=== PATIENT | female | born 1995 | race Caucasian/White ===

== ENCOUNTER 2017-03-16 17:50 | Outpatient (CLI) | payer MEDICAID ==
[~2017-03-16] VITALS: Ht 167.6 cm; Wt 89.9 kg
[~2017-03-16 17:50] MED LIST: PREN1TAB79 PO
[2017-03-16] MEDS ORDERED: LACTATED RINGER'S 1,000 ML IV SCH (18:25)
[2017-03-16 18:42] LABS: ADD UMIC YES; UR ASCORBIC ACID NEGATIVE (NEGATIVE); UR BILIRUBIN (Dip) NEGATIVE (NEGATIVE); UR BLOOD (Dip) NEGATIVE (NEGATIVE); UR CLARITY CLEAR (CLEAR); UR COLOR YELLOW (YELLOW); UR GLUCOSE (Dip) NEGATIVE (NEGATIVE); UR KETONES (Dip) NEGATIVE (NEGATIVE); UR LEUKOCYTE ESTERASE (Dip) 3+ Leu/ul (NEGATIVE); UR NITRITE (Dip) NEGATIVE (NEGATIVE); UR RBC 1 /HPF (0-5); UR SPECIFIC GRAVITY (Dip) 1.006 (1.003-1.030); UR TOTAL PROTEIN (Dip) NEGATIVE (NEGATIVE); UR UROBILINOGEN (Dip) NEGATIVE (NEGATIVE)
[2017-03-16 18:46] VITALS: Ht 167.6 cm; Wt 89.9 kg
[2017-03-16 19:17] LABS: BASOPHILS % 0.3 % (0.0-2.0); EOSINOPHILS # 0.1 10^3/ul (0.0-0.5); EOSINOPHILS % 0.8 % (0.0-7.0); HEMATOCRIT 29.1 % (37.0-47.0); HEMOGLOBIN 9.1 g/dl (12.0-16.0); LYMPHOCYTES # 1.9 10^3/ul (0.8-2.9); LYMPHOCYTES % 20.6 % (15.0-51.0); MEAN CORPUSCULAR HEMOGLOBIN 26.5 pg (29.0-33.0); MEAN CORPUSCULAR HGB CONC 31.3 g/dl (32.0-37.0); MEAN CORPUSCULAR VOLUME 84.6 fl (82.0-101.0); MEAN PLATELET VOLUME 11.1 fl (7.4-10.4); MONOCYTE # 0.8 10^3/ul (0.3-0.9); MONOCYTES % 8.5 % (0.0-11.0); NEUTROPHIL # 6.4 10^3/ul (1.6-7.5); NEUTROPHILS % 69.3 % (39.0-77.0); PLATELET COUNT 249 10^3/UL (140-415); RED BLOOD COUNT 3.44 10^6/ul (4.20-5.40); RED CELL DISTRIBUTION WIDTH 14.3 % (11.5-14.5); WHITE BLOOD COUNT 9.3 10^3/ul (4.8-10.8)
[2017-03-16 19:38] LABS: ALBUMIN 3.5 g/dl (3.3-4.9); ALBUMIN/GLOBULIN RATIO 1.12; BILIRUBIN,INDIRECT 0.7 mg/dl (0-1.1); BILIRUBIN,TOTAL 0.7 mg/dl (0.2-1.3); CALCIUM 8.6 mg/dl (8.4-10.2); CREATININE 0.51 mg/dl (0.44-1.00); POTASSIUM 3.4 mmol/L (3.5-5.1); TOTAL PROTEIN 6.6 g/dl (6.1-8.1)
--- NOTE | 2017-03-16 20:15 | RADRPT ---
PROCEDURE: OB ultrasound for biophysical profile CLINICAL INDICATION: labor. TECHNIQUE: Multiple sonographic images of the pelvis were obtained. Transabdominal view of the gr avid uterus are available for review. The images were reviewed on a PACS workstation. COMPARISON: None FINDINGS: Estimated due date June 03, 2017 Estimated gestational age by ED 28 weeks 5 days breathing movement = 2/2 tone = 2/2 motion = 2/2 Amniotic fluid = 2/2 CHAITANYA = 14.5 cm Single live intrauterine in cephalic presentation with cardiac activity (173 bpm). Anterior placenta, grade 1 with the scattered punctate calcifications.. Placenta measures up to 2.7 cm in thickness. IMPRESSION: 1. Single viable intrauterine gestation in cephalic presentation. 2. Biophysical profile = 8/8. 3. CHAITANYA = 14.5 cm. 4. Anterior grade 1 placenta without evidence of previa. RPTAT: HCTS Physician Sridhar Date Time Electronically viewed and signed by Physician Sridhar on 03/16/2017 20:15 CS/
--- NOTE | 2017-03-16 20:20 | RADRPT ---
PROCEDURE: Limited OB ultrasound CLINICAL INDICATION: 21-year-old female. labor. TECHNIQUE: Sonographic evaluation to assess the cervical length was performed. Transabdominal and transvaginal imaging of the uterus was performed. COMPARISON: None. FINDINGS: ROSHNI: June 03, 2017 EGA by ROSHNI: 28 weeks 5 days A single live intrauterine in cephalic presentation is identified. The heart rate me asures 150 bpm. The cervix is closed, measuring 3.7 cm in length. Negative for internal funneling.. There is an anterior placenta and, grade 1. IMPRESSION: Closed cervix measuring 3.7 cm. RPTAT: HCTS Physician Sridhar Date Time Electronically viewed and signed by Physician Sridhar on 03/16/2017 20:20 CS/
[2017-03-16] MEDS ORDERED: CEFAZOLIN 2 GM/50 ML (PMX) 50 ML IVPB ONE (21:30)
--- NOTE | 2017-03-16 21:31 | QN ---
Documentation Comment iup 31 weeks co of back abd and leg pain no nvfc good FM vss exam wnl rrr ctab no cva tenderess us wnl ua uti a/p iup 31 weeks false labor uti-macrobid nc home MOUNA SCOTT MD Mar 16, 2017 21:31
[2017-03-16] MEDS ORDERED: NIFEdipine 10 MG CAP PO ONE (23:00)
--- NOTE | 2017-03-17 01:38 | TRIAGE ---
OB Triage Datetime Report Generated by CPN: 03/17/2017 01:38 Datetime: 03/16/2017 23:52 Stage of : OB Triage Labor Evaluation Frequency: none Monitor Mode: External Pattern: Normal: <= 5 Contractions in 10 Minutes Resting Tone Pope: Relaxed Heart Rate FHR Baseline Rate: 140 Monitor Mode: External US Variability: Moderate 6-25 bpm Accelerations: 15X15 Decelerations: None Category: Category I Datetime: 03/16/2017 23:41 Pain Assessment Pain Scale: 2 Pain Presence: Constant Pain Location: Abdomen Datetime: 03/16/2017 23:00 Labor Evaluation Frequency: 3-7 Monitor Mode: External Duration (sec)2399: 50-70 Quality: Mild Pattern: Normal: <= 5 Contractions in 10 Minutes Resting Tone Pope: Relaxed Heart Rate FHR Baseline Rate: 135 Monitor Mode: External US Variability: Moderate 6-25 bpm Accelerations: 15X15 Decelerations: None Category: Category I Datetime: 03/16/2017 22:40 Monitor Mode: External US Datetime: 03/16/2017 22:03 Pain Assessment Pain Scale: 5 Pain Presence: Constant Datetime: 03/16/2017 22:00 Labor Evaluation Frequency: 2-8 Monitor Mode: External Duration (sec)2399: 50-60 Quality: Mild Pattern: Normal: <= 5 Contractions in 10 Minutes Resting Tone Pope: Relaxed Heart Rate FHR Baseline Rate: 135 Monitor Mode: External US Variability: Moderate 6-25 bpm Accelerations: 15X15 Decelerations: None Category: Category I Datetime: 03/16/2017 21:00 Labor Evaluation Frequency: x1 Monitor Mode: External Duration (sec)2399: 50 Quality: Mild Pattern: Normal: <= 5 Contractions in 10 Minutes Resting Tone Pope: Relaxed Heart Rate FHR Baseline Rate: 135 Monitor Mode: External US Variability: Moderate 6-25 bpm Accelerations: 10X10 Decelerations: Early Datetime: 03/16/2017 20:00 Labor Evaluation Frequency: none Monitor Mode: External Pattern: Normal: <= 5 Contractions in 10 Minutes Resting Tone Pope: Relaxed Heart Rate FHR Baseline Rate: 145 Monitor Mode: External US Variability: Moderate 6-25 bpm Accelerations: 10X10 Datetime: 03/16/2017 19:02 Stage of : OB Triage Assessment Type: Triage Maternal Assessment Level of Consciousness: Fully Conscious DTR's/Clonus: DTRs 2+; No Clonus Headache: Denies Blurred Vision: No Respiratory Effort: Unlabored; Regular Rhythm; Equal Expansion Breath Sounds, Left: Clear and Equal Breath Sounds, Right: Clear and Equal Nausea/Vomiting: Denies RUQ Epigastric Pain: Denies Lower Extremities Edema: None Degree: None Upper Extremities Edema: None Degree: None Facial Edema: None Temperature Route: Axillary Fall Risk Assessment History of Falling: (0) No Secondary Diagnosis: (0) No Ambulatory Aid: (0) Bedrest/Nurse Assist IV Therapy: (0) No Gait: (0) Normal/Bedrest/Immobile Mental Status: (0) Oriented to Own Ability Fall Score: 0 Fall Risk Score Definition: No Risk: No action required Pain Assessment Pain Scale: 8 Pain Presence: Constant Pain Location: Abdomen Datetime: 03/16/2017 18:37 Labor Evaluation Frequency: 0 Monitor Mode: External Duration (sec)2399: 0 Resting Tone Pope: Relaxed Contraction Comments: NO UC'S NOTED PT DENIES UC'S Heart Rate FHR Baseline Rate: 135 Monitor Mode: External US Variability: Moderate 6-25 bpm Accelerations: 15X15 Decelerations: None Category: Category I Comments: NST REACTIVE FOR GESTATIONAL AGE Pain Assessment Pain Scale: 9 Pain Presence: Constant Pain Type: Cramping Pain Location: Abdomen; Back Pain Goal: 1 Pain Relief Measures: Comfort Measures Datetime: 03/16/2017 18:03 Time of Arrival: 03/16/2017 17:40 EGA: 31.1 Arrived By: Ambulatory Arrived From: Home Chief Complaint: CONSTANT ABDOMINAL PAIN/ BACK PAIN FOR 2 WEEKS Movement: Present Contractions: Denies/Absent Rupture of Membranes: Denies Vaginal Bleeding: None Vaginal Discharge: Denies Recent Sexual Intercouse: Denies Abdominal Trauma: Not Applicable Patient Complaints: Cramping; Back Pain Time Provider Notified: 03/16/2017 18:21 Provider Notified: SEAN Initial Plan: NST AND CALL
== END 2017-03-17 00:03 | disposition home or self-care (01) ==
LOC: OBT 17:50 → L-D 17:51 → OBT 03-17 00:03
PROVIDERS: ATTEND Obstetrics & Gynecology
DX: O47.00 False labor before 37 completed weeks of gestation, unspecified trimester (principal); O23.43 Unspecified infection of urinary tract in pregnancy, third trimester; Z3A.31 31 weeks gestation of pregnancy
CPT/HCPCS: 36415; 76817; 76818; 80053; 81001; 85025; 96360; 96361; 96367; J0690; J7120; Z7500; Z7610; G0463

== ENCOUNTER 2017-06-03 00:39 | Outpatient (CLI) | payer MEDICAID, OTHER ==
[~2017-06-03] VITALS: Ht 167.6 cm; Wt 85.9 kg
[2017-06-03 01:11] VITALS: Ht 167.6 cm; Wt 85.9 kg
[2017-06-03 01:12] VITALS: BP 117/60; PULSE 108; RESP 18
--- NOTE | 2017-06-03 01:48 | PN ---
Triage Information Date/Time Reason for visit: Uterine contractions Weeks of Gestation 40+0 /Para 2/1 Diabetes: none Hypertention: none Additional information Contractions started at 6pm yesterday. Was concerned about decreased FM at home so did kick counts this evening and got 10 kicks/1hr. Denies LOF. Has noticed a small amt of bleeding with contractions. Objective Vital Signs Date Time Temp Pulse Resp B/P Pulse Ox O2 Delivery O2 Flow Rate FiO2 06/03/17 01:12 98.3 108 18 117/60 Room Air Heart Rate: 140's Contractions: >10 Minutes Apart (4 UCs/50 min) Exam SVE 2/70/-3, no blood on RN glove after exam, unchanged after 2hrs Results/Medications Imaging Results PROCEDURE: Biophysical profile. CLINICAL INDICATION: Pelvic pain. TECHNIQUE: Multiple sonographic images of the pelvis were obtained with transabdominal technique. COMPARISON: 03/16/2017. FINDINGS: There is a single living intrauterine gestation with the fetus in a vertex position. The placenta is anterior in location, grade II. heart tones of 159 beats per minute are identified. There is normal amniotic fluid volume with an CHAITANYA of 10.0 cm. breathing movements = 2 Gross body movements = 2 tone = 2 Qualitative AFV = 2 IMPRESSION: Biophysical profile 8 out of 8. Disposition: Discharge Assessment/Plan Early labor Reactive NST, nl BPP Pt appropriate for d/c home Pt to call provider for follow-up plan Strict labor, ROM and FKC precautions reviewed Questions answered to pt and her partner's satisfaction HORACIO SARAVIA MD Jun 03, 2017 01:48
--- NOTE | 2017-06-03 03:07 | RADRPT ---
PROCEDURE: Biophysical profile. CLINICAL INDICATION: Pelvic pain. TECHNIQUE: Multiple sonographic images of the pelvis were obtained with transabdominal technique. COMPARISON: 03/16/2017. FINDINGS: There is a single living intrauterine gestation with the fetus in a vertex position. The placenta i s anterior in location, grade II. heart tones of 159 beats per minute are identified. There i s normal amniotic fluid volume with an CHAITANYA of 10.0 cm. breathing movements = 2 Gross body movements = 2 tone = 2 Qualitative AFV = 2 IMPRESSION: Biophysical profile 8 out of 8. .Josias Davis MD, Date Time Electronically viewed and signed by .Josias Davis MD, on 06/03/2017 03:07 .T/
--- NOTE | 2017-06-03 04:06 | TRIAGE ---
OB Triage Datetime Report Generated by CPN: 06/03/2017 04:06 Datetime: 06/03/2017 01:49 Stage of : OB Triage Datetime: 06/03/2017 01:29 Stage of : OB Triage Contraction Comments: MONIORS OFF, PT UP FOR AMBULATORY. Datetime: 06/03/2017 01:28 Stage of : OB Triage Labor Evaluation Frequency: x1 Monitor Mode: External Duration (sec)2399: 110 Quality: Mild Heart Rate FHR Baseline Rate: 140 Monitor Mode: External US Variability: Moderate 6-25 bpm Accelerations: 15X15 Decelerations: None Category: Category I Datetime: 06/03/2017 01:05 Stage of : OB Triage Maternal Assessment Temperature Route: Oral Labor Evaluation Frequency: X2 Monitor Mode: External Duration (sec)2399: 80-110 Quality: Moderate Heart Rate FHR Baseline Rate: 145 Monitor Mode: External US Variability: Moderate 6-25 bpm Accelerations: 15X15 Decelerations: None Category: Category I Pain Assessment Pain Scale: 9 Pain Presence: Intermittent Pain Type: Contraction Pain Location: Abdomen Pain Goal: 3 Pain Assessment Comments: PT APPEAR COMFORTABLE AND NO SIGNS OF DISTRESS, PT WATCHING PHONE WHEN LYING ON THE GURNEY. Datetime: 06/03/2017 00:48 Stage of : Labor Vaginal Exam Dilatation (cms): 2.0 Effacement (%): 70 Station: -3 Exam By: DARLEEN MENDEZ Membrane Status: Intact Datetime: 03/17/2017 00:58 Time of Arrival: 06/03/2017 00:30 EGA: 40.0 Arrived By: Wheelchair Arrived From: Home Chief Complaint: PT C/O ABDOMEN CONTRACTION PAIN Movement: Present Contractions: Irregular Time Contractions Began: 06/02/2017 18:00 Rupture of Membranes: Denies Vaginal Discharge: Denies Recent Sexual Intercouse: Denies Abdominal Trauma: Not Applicable Patient Complaints: Contractions Time Provider Notified: 06/03/2017 01:28 Provider Notified: DR SARAVIA Initial Plan: INITIAL ASSESSMENT, SVE, TOCO AND EFM APPLY (Annotations: Data stored by CPN on beh intermediate of user) Datetime: 03/16/2017 19:02 Fall Risk Assessment Fall Score: 0 Fall Risk Score Definition: No Risk: No action required Datetime: 03/16/2017 18:03 EGA: 28.5
== END 2017-06-03 03:30 | disposition home or self-care (01) ==
LOC: OBT 00:39 → L-D 00:39 → OBT 03:30
PROVIDERS: ATTEND Obstetrics & Gynecology
DX: O62.9 Abnormality of forces of labor, unspecified (principal); Z3A.40 40 weeks gestation of pregnancy
CPT/HCPCS: 76818; Z7500; G0463

== ENCOUNTER 2017-06-03 05:43 | Inpatient (IN) | payer OTHER ==
[~2017-06-03] VITALS: Ht 167.6 cm; Wt 91.6 kg
[2017-06-04 18:53] VITALS: Ht 167.6 cm; Wt 91.6 kg
[2017-06-04 18:54] VITALS: BP 105/60; PULSE 91; RESP 16
[2017-06-04] MEDS ORDERED: CARBOPROST 250 MCG INJ IM PRN (20:30)
[2017-06-04] MEDS ORDERED: AMPICILLIN 2 GM/NS (PMX) 100 ML IV ONE (20:30)
[2017-06-04] MEDS ORDERED: MINERAL OIL LIGHT 10 ML VIAL TOP ONE (20:30)
[2017-06-04] MEDS ORDERED: METHYLERGONOVINE 0.2 MG INJ IM PRN (20:30)
[2017-06-04] MEDS ORDERED: LIDOCAINE 1% (MPF) 30 ML INJ INJ PRN (20:30)
[2017-06-04] MEDS ORDERED: OXYTOCIN 30 UNITS/LR 500 ML IV PRN (20:30)
[2017-06-04] MEDS ORDERED: BUTORPHANOL 2 MG INJ IV PRN (20:30)
[2017-06-04] MEDS ORDERED: IBUPROFEN 600 MG TAB PO PRN (20:30)
[2017-06-04] MEDS ORDERED: MISOPROSTOL 200 MCG TAB PR PRN (20:30)
[2017-06-04] MEDS ORDERED: OXYTOCIN 30 UNITS/LR 500 ML IV SCH (20:30)
[2017-06-04] MEDS: LACTATED RINGER'S 1,000 ML IV SCH (20:44)
--- NOTE | 2017-06-04 20:52 | RADRPT ---
PROCEDURE: US OB. CLINICAL INDICATION: Post dates. The patient in labor. TECHNIQUE: Multiple sonographic images of the uterus were obtained. The images were revi ewed on a PACS workstation. COMPARISON: No prior studies are available for comparison. FINDINGS: There is a single live intrauterine gestation. heart rate is 144 beats per minute. Measurements were made in order to determine age. The results are as follows: BPD = 9.28 cm. HC = 33.01 cm. AC = 36.96 cm. FL = 7.48 cm. Estimated weight is 3114 +/- 572 grams. LMP growth percentile is 64 %. Menstrual age by ultrasound dates is 38 weeks 4 days. The estimated date of delivery is 06/14/2017. Position is cephalic and placenta is anterior grade II. There is no evidence for an abruption or stacy centa previa. IMPRESSION: 1. Single live intrauterine gestation of 38 weeks 4 days menstrual age by ultrasound dates. 2. The estimated date of delivery is 06/14/2017. RPTAT: QQ .Giuseppe Agrawal MD, Date Time Electronically viewed and signed by .Giuseppe Agrawal MD, on 06/04/2017 20:52 .R/
[2017-06-04] MEDS ORDERED: LACTATED RINGER'S 1,000 ML IV PRN (21:00)
[2017-06-05] MEDS ORDERED: FENTAnyl 2MCG/ML-ROPIV 0.2% 100 ML ONE (00:17)
[2017-06-05] MEDS ORDERED: NALOXONE (0.4 MG/ML) INJ IV PRN (01:30)
[2017-06-05] MEDS: LACTATED RINGER'S 1,000 ML IV SCH ×3 (01:40→19:50)
[2017-06-05] MEDS: AMPICILLIN 1 GM/NS (PMX) 50 ML IV SCH ×6 (01:40→20:30)
[2017-06-05] MEDS ORDERED: OXYTOCIN 30 UNITS in LACTATED RINGER'S 497 ML IV SCH (02:00)
[2017-06-05] MEDS ORDERED: OXYTOCIN 30 UNITS/LR 500 ML IV SCH (02:30)
[2017-06-05] MEDS: FENTAnyl 2MCG/ML-ROPIV 0.2% 100 ML BAG EPI SCH ×2 (09:19→16:01)
--- NOTE | 2017-06-05 12:17 | RADRPT ---
PROCEDURE: US Abdomen. CLINICAL INDICATION: abdominal pain TECHNIQUE: Multiple real-time images were acquired of the patient's right upper quadrant abdomen a nd retroperitoneum utilizing a high resolution transducer. COMPARISON: None FINDINGS: The liver demonstrates normal echogenicity. The liver is normal in size and no focal solid lesions are seen. The liver measures 15.0 cm in length. The portal vein is patent with normal direction of f low. No intrahepatic biliary dilatation is seen. No gallstones are identified within the gallbladder. There is no pericholecystic fluid or gallbladd er wall thickening. The common bile duct measures 3.6 mm in maximal dimension. The pancreas was not seen due to overlying bowel gas. No free fluid is identified. The right kidney is normal in size, and demonstrate normal echogenicity and cortical thickness. The right kidney measures 11.6 cm in long dimension. There is mild right-sided hydronephrosis. There a re no kidney stones. RPTAT: AA IMPRESSION: Mild right-sided hydronephrosis. Pancreas not seen due to overlying bowel gas. .Baljit Dodd MD, Date Time Electronically viewed and signed by .Baljit Dodd MD, MD on 06/05/2017 12:17 .S/
[2017-06-05] MEDS ORDERED: NA PHOSPHATE/BIPHOS 133 ML ENEMA PR ONE (13:30)
[2017-06-05] MEDS: OXYTOCIN 30 UNITS/LR 500 ML IV SCH ×2 (20:30→20:54)
--- NOTE | 2017-06-05 20:54 | LDN ---
Date/Time of Note Date/Time of Note DATE: 06/05/17 TIME: 20:52 Delivery Summary Weeks of Gestation 40 Placenta Delivered: Spontaneously Meconium: none Episiotomy: No Laceration repair: Left labia minora laceration repaired with 3-0 chromic Anesthesia type: Epidural Estimated blood loss: 200 Sponge & Needle done & correct: Yes All needle counts correct: Yes Any foreign bodies felt in the: No Problems: Delivery Information Sex Infant Sex: female Apgars 1 Minute: 8 5 Minute: 9 Suctioning Nose & mouth suctioned at chasity: No Delee suction performed: No Umbilical Cord Umbilical cord with: 3 Vessels Cord presentations: no nuchal cord Cord Blood was obtained: Yes AKI KIRBY MD Jun 05, 2017 20:54
[2017-06-05] MEDS ORDERED: OXYCODONE/ASPIRIN (4.88/325) TAB PO PRN ×2 (21:00)
[2017-06-05] MEDS ORDERED: METHYLERGONOVINE 0.2 MG INJ IM PRN (21:00)
[2017-06-05] MEDS ORDERED: MISOPROSTOL 200 MCG TAB PR PRN (21:00)
[2017-06-05] MEDS ORDERED: SENNA/DOCUSATE NA (8.6MG/50MG) TAB PO PRN (21:00)
[2017-06-05] MEDS ORDERED: BENZOCAINE 20% 56 ML SPRAY TOP PRN (21:00)
[2017-06-05] MEDS ORDERED: WITCH HAZEL/GLYCERIN PAD PR PRN (21:00)
[2017-06-05] MEDS ORDERED: DIPHENHYDRAMINE 25 MG CAP PO PRN (21:00)
[2017-06-05] MEDS ORDERED: DIBUCAINE 1% 30 GM OINT PR PRN (21:00)
[2017-06-05] MEDS ORDERED: ONDANSETRON 4 MG TAB PO PRN (21:00)
[2017-06-05] MEDS ORDERED: ONDANSETRON 4 MG INJ IV PRN (21:00)
[2017-06-05] MEDS ORDERED: LANOLIN 7 GM TUBE TOP PRN (21:00)
[2017-06-05] MEDS ORDERED: OXYTOCIN 30 UNITS/LR 500 ML IV PRN (21:00)
[2017-06-05] MEDS: SENNA/DOCUSATE NA (8.6MG/50MG) TAB PO SCH (21:00)
[2017-06-05] MEDS ORDERED: CARBOPROST 250 MCG INJ IM PRN (21:00)
[2017-06-05 22:30] VITALS: BP 118/63; PULSE 71; RESP 20
[2017-06-05 23:00] VITALS: BP 110/65; PULSE 66; RESP 20
[2017-06-06 00:01] VITALS: BP 112/54; PULSE 67; RESP 18
--- NOTE | 2017-06-06 01:14 | PREOPHP ---
DATE OF ADMISSION: 06/04/2017 HISTORY OF PRESENT ILLNESS: Ms. Makenna Ta is a 21-year-old 2, para 1, EDC 06/03/20 17 intrauterine at 40 weeks and 2 days' gestational age who was sent from clinic yesterday for admission. At the time she was in clinic, she was 3 cm dilated, 80%, -2 station. She denies a ny vaginal bleeding or discharge. Positive contractions. Her care took place at [facility]. PAST MEDICAL HISTORY: None. MEDICATIONS: vitamins. PAST SURGICAL HISTORY: None. OBSTETRICAL HISTORY: X1 vaginal delivery. GYNECOLOGIC HISTORY: 12, regular 3 to 4 days. Denies any sexually transmitted diseases. Sexually active with 1 partner. SOCIAL HISTORY: Denies any smoking, drugs or alcohol. FAMILY HISTORY: None. REVIEW OF SYSTEMS: All within normal except history of present illness. PHYSICAL EXAMINATION: HEENT: Within normal. LUNGS: CTA bilateral. CARDIOVASCULAR: S1, S2, regular rhythm. ABDOMEN: Gravid, nontender. Negative CVA bilateral. EXTREMITIES: Negative edema. No calf tenderness. PELVIC: Vaginal exam 380 -2. ASSESSMENT: Intrauterine at term in labor. PLAN: Admit patient. Consider Pitocin for augmentation as needed. Dictated By: AKI DODD/ABRAHAM Conf#: [id number] DID#: [id number]
--- NOTE | 2017-06-06 01:14 | PREOPHP ---
DATE OF ADMISSION: 06/04/2017 HISTORY OF PRESENT ILLNESS: Ms. Makenna Ta is a 21-year-old 2, para 1, EDC 06/03/20 17 intrauterine at 40 weeks and 2 days' gestational age who was sent from clinic yesterday for admission. At the time she was in clinic, she was 3 cm dilated, 80%, -2 station. She denies a ny vaginal bleeding or discharge. Positive contractions. Her care took place at [facility]. PAST MEDICAL HISTORY: None. MEDICATIONS: vitamins. PAST SURGICAL HISTORY: None. OBSTETRICAL HISTORY: X1 vaginal delivery. GYNECOLOGIC HISTORY: 12, regular 3 to 4 days. Denies any sexually transmitted diseases. Sexually active with 1 partner. SOCIAL HISTORY: Denies any smoking, drugs or alcohol. FAMILY HISTORY: None. REVIEW OF SYSTEMS: All within normal except history of present illness. PHYSICAL EXAMINATION: HEENT: Within normal. LUNGS: CTA bilateral. CARDIOVASCULAR: S1, S2, regular rhythm. ABDOMEN: Gravid, nontender. Negative CVA bilateral. EXTREMITIES: Negative edema. No calf tenderness. PELVIC: Vaginal exam 380 -2. ASSESSMENT: Intrauterine at term in labor. PLAN: Admit patient. Consider Pitocin for augmentation as needed. Dictated By: AKI DODD/ABRAHAM Conf#: [id number] DID#: [id number]
--- NOTE | 2017-06-06 01:14 | PREOPHP ---
DATE OF ADMISSION: 06/04/2017 HISTORY OF PRESENT ILLNESS: Ms. Makenna Ta is a 21-year-old 2, para 1, EDC 06/03/20 17 intrauterine at 40 weeks and 2 days' gestational age who was sent from clinic yesterday for admission. At the time she was in clinic, she was 3 cm dilated, 80%, -2 station. She denies a ny vaginal bleeding or discharge. Positive contractions. Her care took place at [facility]. PAST MEDICAL HISTORY: None. MEDICATIONS: vitamins. PAST SURGICAL HISTORY: None. OBSTETRICAL HISTORY: X1 vaginal delivery. GYNECOLOGIC HISTORY: 12, regular 3 to 4 days. Denies any sexually transmitted diseases. Sexually active with 1 partner. SOCIAL HISTORY: Denies any smoking, drugs or alcohol. FAMILY HISTORY: None. REVIEW OF SYSTEMS: All within normal except history of present illness. PHYSICAL EXAMINATION: HEENT: Within normal. LUNGS: CTA bilateral. CARDIOVASCULAR: S1, S2, regular rhythm. ABDOMEN: Gravid, nontender. Negative CVA bilateral. EXTREMITIES: Negative edema. No calf tenderness. PELVIC: Vaginal exam 380 -2. ASSESSMENT: Intrauterine at term in labor. PLAN: Admit patient. Consider Pitocin for augmentation as needed. Dictated By: AKI DODD/ABRAHAM Conf#: [id number] DID#: [id number]
[2017-06-06] MEDS: LACTATED RINGER'S 1,000 ML IV* SCH ×2 (01:27→04:54)
[2017-06-06 04:00] VITALS: BP 103/49; PULSE 89; RESP 20
[2017-06-06] MEDS: IBUPROFEN 600 MG TAB PO SCH ×4 (06:24→18:04)
--- NOTE | 2017-06-06 07:48 | PD.PPDC ---
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
--- NOTE | 2017-06-06 07:48 | PD.PPDC ---
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
--- NOTE | 2017-06-06 07:48 | PD.PPDC ---
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
--- NOTE | 2017-06-06 07:51 | DS ---
Date/Time of Note Date/Time of Note DATE: 06/06/17 TIME: 07:49 Obstetrical Discharge Record Final Diagnosis Final Diagnosis: Term delivered Vaginal Delivery Other Delivery information vaginal delivery Condition on Discharge Physical Assessment Last Vitals: stable afebrile Voiding: Yes Bowel Movement: Yes Breast: Soft, non-tender, Filling Fundus: Firm Abdomen and Incision: soft nt Calf Tenderness: No Patient Condition: Fair AKI KIRBY MD Jun 06, 2017 07:51
[2017-06-06 08:00] VITALS: BP 96/53; PULSE 65; RESP 18
[2017-06-06] MEDS: SENNA/DOCUSATE NA (8.6MG/50MG) TAB PO SCH ×2 (09:27→21:21)
[2017-06-06 12:00] VITALS: BP 105/65; PULSE 72; RESP 16
[2017-06-06 16:10] VITALS: BP 100/60; PULSE 70; RESP 17
[2017-06-06 20:00] VITALS: BP 106/53; PULSE 80; RESP 17
[2017-06-06] MEDS: FERROUS SULFATE (EC) 325 MG TAB PO SCH (21:21)
[2017-06-07] MEDS: IBUPROFEN 600 MG TAB PO SCH ×4 (00:23→18:14)
[2017-06-07 04:00] VITALS: BP 114/50; PULSE 70; RESP 18
[2017-06-07 08:00] VITALS: BP 112/67; PULSE 65; RESP 16
[2017-06-07] MEDS: FERROUS SULFATE (EC) 325 MG TAB PO SCH ×2 (09:15→21:05)
[2017-06-07] MEDS: SENNA/DOCUSATE NA (8.6MG/50MG) TAB PO SCH ×2 (09:15→21:05)
[2017-06-07 16:00] VITALS: BP 124/74; PULSE 86; RESP 16
[2017-06-07 20:30] VITALS: BP 122/60; PULSE 72; RESP 17
== END 2017-06-07 23:11 | disposition home or self-care (01) | DRG 775 ==
LOC: EDSTATUS 18:07 → L-D 06-04 18:09 → PP1 06-05 22:27
PROVIDERS: ADMIT Obstetrics & Gynecology; ATTEND Obstetrics & Gynecology
PROC: 10E0XZZ Delivery of Products of Conception, External Approach (ICD-10-PCS; principal; 2017-06-05)
PROC: 0UQMXZZ Repair Vulva, External Approach (ICD-10-PCS; 2017-06-05)
PROC: 3E0P3VZ Introduction of Hormone into Female Reproductive, Percutaneous Approach (ICD-10-PCS; 2017-06-05)
DX: O70.0 First degree perineal laceration during delivery (principal); O48.0 Post-term pregnancy; O99.02 Anemia complicating childbirth; Z3A.40 40 weeks gestation of pregnancy; Z37.0 Single live birth
CPT/HCPCS: 62319; 76705; 76815; 85025; 85610; 85730; 86592; 86900; 86901; 87340; J0290; J2590; J3010; J7120